=== PATIENT | female | born 1945 | race Caucasian/White ===

== ENCOUNTER → 2017-02-04 | Outpatient (CLI) | payer BC ==
[~2017-02-04] MED LIST: ASA325 MG PO; CALTRATE-600 D600 MG PO; COUMADIN DPS3 MG PO; COUMADIN4 MG PO; KLONOPIN DPS0.5 MG PO; LEVAQUIN DPS250 MG PO; MAALOX DPS30 ML PO; NATURAL LUTEIN20 MG PO; NORVASC5 MG PO; PRILOSEC DPS20 MG PO; SURFAK DPS240 MG PO; THERA1 EACH PO; TUMS DPS500 MG PO; TYLENOL DPS325 MG PO; ZOFRAN8 MG PO
== END | disposition home or self-care (01) ==
LOC: RAD.S 07:10
DX: Z12.31 Encounter for screening mammogram for malignant neoplasm of breast (principal); Z80.3 Family history of malignant neoplasm of breast